=== PATIENT | female | born 1985 | race Two or more races ===

== ENCOUNTER 2019-01-06 11:26 | Emergency (ER) | payer OTHER ==
[~2019-01-06] VITALS: Ht 165.1 cm; Wt 61.0 kg
[2019-01-06 11:29] VITALS: BP 113/79; Ht 165.1 cm; Wt 61.0 kg
== END 2019-01-06 13:07 | disposition home or self-care (01) ==
LOC: ED 11:26
DX: S93.602A Unspecified sprain of left foot, initial encounter (principal); X58.XXXA Exposure to other specified factors, initial encounter; Y93.89 Activity, other specified; Y92.89 Other specified places as the place of occurrence of the external cause; Y99.8 Other external cause status